=== PATIENT | male | born 1990 | race Caucasian/White ===

== ENCOUNTER → 2017-03-09 | Outpatient (CLI) | payer BC ==
--- NOTE | 2017-03-09 10:55 | US ---
EXAMINATION TYPE: US thyroid st tissue head/neck DATE OF EXAM: 03/09/2017 COMPARISON: Ultrasound 06/04/2016 CLINICAL HISTORY: E04.1 thyroid nodules. Follow up thyroid nodule, history of thyroid FNA GLAND SIZE: Right Lobe: 4.3 x 2.3 x 2.7 cm Overall Parenchyma: homogenous Left Lobe: 4.3 x 1.5 x 1.2 cm Overall Parenchyma: homogeneous Isthmus Thickness: 0.4 cm NODULES RIGHT: # of nodules measured on right: 1 1. 2.8 X 2.1 x 2.4 cm hypoechoic solid nodule at the mid pole with well-defined margins. This nodul e is wider than tall and shows intranodular vascularity. Prior size: 3.1 x 2.4 x 2.1 cm LEFT: # of nodules measured on left: 0 ISTHMUS: # of nodules measured in the isthmus: 0 Bilateral neck scanned, no evidence of lymphadenopathy. IMPRESSION: 1. Large stable size nodule right lobe thyroid.
== END | disposition home or self-care (01) ==
LOC: RADUSWWP 10:16
PROVIDERS: ATTEND Family Medicine
DX: E04.1 Nontoxic single thyroid nodule (principal)
CPT/HCPCS: 76536

== ENCOUNTER → 2018-07-01 | Outpatient (CLI) | payer BC ==
--- NOTE | 2018-07-01 12:13 | US ---
EXAMINATION TYPE: US thyroid st tissue head/neck DATE OF EXAM: 07/01/2018 COMPARISON: Thyroid ultrasound March 09, 2017 CLINICAL HISTORY: Right Thyroid Nodule E04.1. f/u, on meds for thyroid GLAND SIZE: Right Lobe: 5.7 x 2.2 x 3.1 cm Overall Parenchyma: heterogenous Left Lobe: 4.6 x 1.3 x 1.5 cm Overall Parenchyma: homogeneous Isthmus Thickness: 0.4 cm NODULES RIGHT: # of nodules measured on right: 1 1. 2.8 X 2.3 x 2.4 cm isoechoic solid nodule at the mid pole with well-defined margins. This nodul e is taller than wide and shows intranodular vascularity. - PREV BX Prior size: 2.8 x 2.1 x 2.4 cm LEFT: # of nodules measured on left: 0 ISTHMUS: # of nodules measured in the isthmus: 0 Bilateral neck scanned, no evidence of lymphadenopathy. There is redemonstration of heterogeneous enlarged right thyroid with dominant poorly defined isoecho ic solid nodule that has been biopsied in the past. No new nodules are evident bilaterally. IMPRESSION: As above
== END ==
LOC: RADUSWWP 11:01
PROVIDERS: ATTEND Family Medicine
DX: E04.1 Nontoxic single thyroid nodule (principal)
CPT/HCPCS: 76536